=== PATIENT | male | born 1965 | race Caucasian/White ===

== ENCOUNTER 2023-02-27 09:17 | Day surgery (SDC) | payer OTHER ==
[2023-02-25 12:35] VITALS: BMI 24.3
[2023-02-27 11:44] VITALS: PULSE 54; RESP 16; TEMP 97.9
[2023-02-27 11:46] VITALS: BP 116/57
== END 2023-02-27 11:45 | disposition home or self-care (01) ==
LOC: FASU-ENDO 09:17
PROVIDERS: ATTEND Internal Medicine Gastroenterology
PROC: 0DB68ZX Excision of Stomach, Via Natural or Artificial Opening Endoscopic, Diagnostic (ICD-10-PCS; 2023-02-27)
PROC: 0DB28ZX Excision of Middle Esophagus, Via Natural or Artificial Opening Endoscopic, Diagnostic (ICD-10-PCS; 2023-02-27)
PROC: 0DB48ZX Excision of Esophagogastric Junction, Via Natural or Artificial Opening Endoscopic, Diagnostic (ICD-10-PCS; 2023-02-27)
PROC: 0DB98ZX Excision of Duodenum, Via Natural or Artificial Opening Endoscopic, Diagnostic (ICD-10-PCS; principal; 2023-02-27 10:58)
DX: K29.50 Unspecified chronic gastritis without bleeding (principal); K21.00 Gastro-esophageal reflux disease with esophagitis, without bleeding; R13.10 Dysphagia, unspecified
CPT/HCPCS: 88305-TC; 88342-TC

== ENCOUNTER 2023-04-24 08:22 | Day surgery (SDC) | payer OTHER ==
[2023-04-17 15:36] VITALS: BMI 24.3
[2023-04-24 10:30] VITALS: BP 108/57; PULSE 6; RESP 16; TEMP 96.4
== END 2023-04-24 10:30 | disposition home or self-care (01) ==
LOC: FASU-ENDO 08:22
PROVIDERS: ATTEND Internal Medicine Gastroenterology
PROC: 0DJD8ZZ Inspection of Lower Intestinal Tract, Via Natural or Artificial Opening Endoscopic (ICD-10-PCS; principal; 2023-04-24 09:38)
DX: Z12.11 Encounter for screening for malignant neoplasm of colon (principal); K64.1 Second degree hemorrhoids; K57.30 Diverticulosis of large intestine without perforation or abscess without bleeding